=== PATIENT | male | born 1970 | race Caucasian/White ===

== ENCOUNTER 2023-04-13 23:57 | Emergency (ER) | payer SELFPAY ==
[2023-04-14] MEDS ORDERED: Bacitracin 1 PK ONE (00:05)
[2023-04-14] MEDS ORDERED: Ibuprofen 800 MG TAB ONE (01:24)
== END 2023-04-14 02:17 ==
LOC: MADERS 23:57
DX: S50.311A Abrasion of right elbow, initial encounter (principal); S60.812A Abrasion of left wrist, initial encounter; S60.416A Abrasion of right little finger, initial encounter; M54.6 Pain in thoracic spine; M79.601 Pain in right arm; M25.511 Pain in right shoulder; R07.89 Other chest pain; J45.909 Unspecified asthma, uncomplicated; F17.210 Nicotine dependence, cigarettes, uncomplicated; X50.1XXA Overexertion from prolonged static or awkward postures, initial encounter
CPT/HCPCS: 71046